=== PATIENT | male | born 1955 | race Caucasian/White ===

== ENCOUNTER 2020-08-29 12:49 | Outpatient (CLI) | payer MEDICAID ==
[~2020-08-29 12:49] MED LIST: REGADENOSON 0.4 MG/5 ML SYRINGE ONE
[2020-08-29] MEDS ORDERED: REGADENOSON 0.4 MG/5 ML SYRINGE ONE (15:38)
== END 2020-08-29 23:59 | disposition home or self-care (01) ==
LOC: CFH 12:49
PROVIDERS: ATTEND Internal Medicine Cardiovascular Disease
DX: Z02.9 Encounter for administrative examinations, unspecified (principal)
CPT/HCPCS: J2785